=== PATIENT | female | born 1990 | race Caucasian/White ===

== ENCOUNTER 2019-09-19 09:30 | Emergency (ER) | payer OTHER ==
[~2019-09-19] VITALS: Ht 172.7 cm; Wt 113.4 kg
[~2019-09-19 09:30] MED LIST: ATIVAN0.5 MG PO; HUMALOG MI100 UNIT/2 SQ; INSULIN PEN; LANTUS100 UNIT/M SUBQ; LEVEMIR SUBQ; LISINOPRIL5 MG PO; MACROBID 100 M100 M1 PO; TRAZODONE HCL50 MG PO; TRINATE TABLET1 TAB PO; WELBUTRIN; ZOLOFT
[2019-09-19] MEDS ORDERED: LEVEMIR100 UNIT/1 SUBQ (10:03)
[2019-09-19] MEDS ORDERED: HUMALOG100 UNIT/1 SUBQ (10:04)
[2019-09-19 11:03] LABS: ABSOLUTE NEUTROPHILS 10.2 thou/uL (1.4-8.2); EOSINOPHILS 1.6 % (0.0-3.0); HEMATOCRIT 44.3 % (37.0-47.0); HEMOGLOBIN 14.5 gm/dL (12.0-15.0); LYMPHOCYTES 14.3 % (24.0-44.0); MCH 30.1 pg (26.0-34.0); MCHC 32.8 g/dL (28.0-37.0); MONOCYTES 5.4 % (1.0-8.0); PLATELET COUNT 375 thou/uL (150-400); POLYS 77.7 % (36.0-66.0); RBC 4.82 mil/uL (4.20-5.00); RDW 13.1 % (10.5-14.5); WBC 13.1 thou/uL (4.0-11.0)
[2019-09-19 11:12] LABS: CALCIUM 9.5 mg/dL (8.5-10.1); CREATININE 0.8 mg/dL (0.6-1.0); POTASSIUM 4.4 mmol/L (3.5-5.1)
[2019-09-19 13:53] VITALS: BP 103/62
== END 2019-09-19 14:20 | disposition home or self-care (01) ==
LOC: ER 09:30
PROVIDERS: Emergency Medicine
DX: O72.1 Other immediate postpartum hemorrhage (principal); E11.9 Type 2 diabetes mellitus without complications; J45.909 Unspecified asthma, uncomplicated; F17.210 Nicotine dependence, cigarettes, uncomplicated; Z98.890 Other specified postprocedural states; Z79.4 Long term (current) use of insulin; Z91.040 Latex allergy status; Z91.048 Other nonmedicinal substance allergy status

== ENCOUNTER 2020-01-03 14:16 | Emergency (ER) | payer OTHER ==
[~2020-01-03] VITALS: Ht 172.7 cm; Wt 117.9 kg
[~2020-01-03 14:16] MED LIST changes: +HUMALOG100 UNIT/1 SUBQ; +LEVEMIR100 UNIT/1 SUBQ
[2020-01-03 14:47] LABS: URINE BILIRUBIN NEGATIVE (Negative); URINE BLOOD NEGATIVE (Negative); URINE CLARITY CLEAR; URINE COLOR YELLOW; URINE GLUCOSE-RANDOM* 2+ (Negative); URINE KETONES NEGATIVE (Negative); URINE LEUKOCYTES-REFLEX NEGATIVE (Negative); URINE NITRITE-REFLEX NEGATIVE (Negative); URINE PROTEIN (DIPSTICK) NEGATIVE (Negative); URINE SPECIFIC GRAVITY 1.025 (1.005-1.035)
[2020-01-03] MEDS ORDERED: ABILIFY15 MG PO (14:57)
[2020-01-03] MEDS ORDERED: SERTRALINE HCL100 MG PO (14:58)
[2020-01-03] MEDS ORDERED: HYDROXYZINE PAM50 MG PO (14:58)
[2020-01-03] MEDS ORDERED: NOVOLOG FL100 UNIT/M SUBQ (14:59)
[2020-01-03] MEDS ORDERED: LANTUS SUBQ (15:00)
[2020-01-03 15:09] LABS: ABSOLUTE NEUTROPHILS 5.3 thou/uL (1.4-8.2); BASOPHILS 0.7 % (0.0-2.0); EOSINOPHILS 2.6 % (0.0-3.0); HEMATOCRIT 42.9 % (37.0-47.0); HEMOGLOBIN 14.1 gm/dL (12.0-15.0); LYMPHOCYTES 21.7 % (24.0-44.0); MCH 29.4 pg (26.0-34.0); MCHC 32.8 g/dL (28.0-37.0); MCV 89.5 fL (80.0-100.0); MONOCYTES 9.1 % (1.0-8.0); PLATELET COUNT 271 thou/uL (150-400); POLYS 65.9 % (36.0-66.0); RBC 4.79 mil/uL (4.20-5.00); RDW 14.2 % (10.5-14.5)
[2020-01-03 15:12] LABS: CALCIUM 8.6 mg/dL (8.5-10.1); CREATININE 0.8 mg/dL (0.6-1.0); POTASSIUM 4.3 mmol/L (3.5-5.1)
[2020-01-03] MEDS ORDERED: TESSALON PERLE100 MG PO (15:32)
[2020-01-03] MEDS ORDERED: IBUPROFEN 600600 M1 PO (15:32)
[2020-01-03 15:50] VITALS: BP 132/77
== END 2020-01-03 15:45 | disposition home or self-care (01) ==
LOC: ER 14:16
PROVIDERS: Nurse Practitioner Family
DX: B34.9 Viral infection, unspecified (principal); R11.2 Nausea with vomiting, unspecified; M79.10 Myalgia, unspecified site; J02.9 Acute pharyngitis, unspecified; J45.909 Unspecified asthma, uncomplicated; E11.9 Type 2 diabetes mellitus without complications; Z79.899 Other long term (current) drug therapy; Z79.4 Long term (current) use of insulin

== ENCOUNTER 2020-04-27 20:04 | Emergency (ER) | payer OTHER ==
[~2020-04-27] VITALS: Ht 172.7 cm; Wt 122.5 kg
[~2020-04-27 20:04] MED LIST changes: +ABILIFY15 MG PO; +HYDROXYZINE PAM50 MG PO; +IBUPROFEN 600600 M1 PO; +LANTUS SUBQ; +NOVOLOG FL100 UNIT/M SUBQ; +SERTRALINE HCL100 MG PO; +TESSALON PERLE100 MG PO
[2020-04-27] MEDS ORDERED: ERYTHROMYCIN E3.5 G2 OPHTHALMIC (20:39)
[2020-04-27 20:53] VITALS: BP 110/70
== END 2020-04-27 20:54 | disposition home or self-care (01) ==
LOC: ER 20:04
DX: H00.015 Hordeolum externum left lower eyelid (principal); J45.909 Unspecified asthma, uncomplicated; E11.9 Type 2 diabetes mellitus without complications; Z79.4 Long term (current) use of insulin; Z79.899 Other long term (current) drug therapy; Z91.040 Latex allergy status; Z91.048 Other nonmedicinal substance allergy status

== ENCOUNTER 2021-01-20 15:05 | Emergency (ER) | payer OTHER ==
[~2021-01-20] VITALS: Ht 172.7 cm; Wt 112.5 kg
--- NOTE | ~2021-01-20 | EKG ---
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
[~2021-01-20 15:05] MED LIST changes: +ERYTHROMYCIN E3.5 G2 OPHTHALMIC
[2021-01-20] MEDS ORDERED: METFORMIN HCL500 M3 PO (15:28)
[2021-01-20] MEDS ORDERED: FLEXERIL PO (15:28)
[2021-01-20] MEDS ORDERED: BUSPIRONE HCL10 MG PO (15:29)
[2021-01-20] MEDS ORDERED: GABAPENTIN 100100 MG PO (15:30)
[2021-01-20 15:46] LABS: HEMATOCRIT 33.7 % (37.0-47.0); HEMOGLOBIN 11.4 gm/dL (12.0-15.0); MCV 79.5 fL (80.0-100.0); PLATELET COUNT 282 thou/uL (150-400); RBC 4.24 mil/uL (4.20-5.00); RDW 14.9 % (10.5-14.5); WBC 8.2 thou/uL (4.0-11.0)
[2021-01-20 15:53] LABS: CALCIUM 8.3 mg/dL (8.5-10.1); CREATININE 0.7 mg/dL (0.6-1.0); POTASSIUM 3.3 mmol/L (3.5-5.1)
[2021-01-20 16:00] LABS: ALBUMIN 2.2 g/dL (3.4-5.0); TOTAL BILIRUBIN 0.4 mg/dL (0.2-1.0); TOTAL PROTEIN 7.3 g/dL (6.4-8.2)
[2021-01-20 16:29] LABS: AMP/METHAMP Negative (Negative); BARBITURATES Negative (Negative); BENZODIAZEPINES Negative (Negative); COCAINE Negative (Negative); METHADONE Negative (Negative); OPIATES Negative (Negative); PCP Negative (Negative)
[2021-01-20 16:42] LABS: URINE BILIRUBIN NEGATIVE (Negative); URINE BLOOD TRACE (Negative); URINE CLARITY CLEAR; URINE COLOR YELLOW; URINE GLUCOSE-RANDOM* 2+ (Negative); URINE KETONES 3+ (Negative); URINE LEUKOCYTES-REFLEX NEGATIVE (Negative); URINE NITRITE-REFLEX NEGATIVE (Negative); URINE PROTEIN (DIPSTICK) TRACE (Negative); URINE UROBILINOGEN 0.2 E.U./dl (0.2-1.0)
[2021-01-20 16:49] LABS: ABSOLUTE NEUTROPHILS 6.1 thou/uL (1.4-8.2); METAMYELOCYTES 4 %
[2021-01-20 16:50] LABS: TEARDROPS FEW; TOXIC GRANULATION SLIGHT
[2021-01-20 16:51] LABS: LARGE PLATELETS OCCASIONAL; POLYCHROMASIA 1+
[2021-01-20] MEDS ORDERED: ONDANSETRON HCL4 M2 PO (19:20)
[2021-01-20] MEDS ORDERED: IBUPROFEN 800800 M1 PO (19:20)
[2021-01-20] MEDS ORDERED: POTASSIUM20 PO (19:20)
[2021-01-20 20:12] VITALS: BP 120/71
--- NOTE | 2021-01-21 07:12 | EKG ---
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: SHMUEL : 1990 Requested By: Yanci Wheat Order Number: [id number] MD: Pranav Lemus Measurements Intervals [place] Rate: 88 P: 61 [place]: 127 QRS: 76 QRSD: 85 T: 13 QT: 365 QTc: 442 Interpretive Statements Sinus rhythm Minimal ST depression, inferior leads Compared to ECG 07/20/2014 03:53:54 ST (T wave) deviation now present Prolonged QT interval no longer present Electronically Signed On 01-21-2021 7:12:20 CDT by Pranav Lemus [email or web address] <ELECTRONICALLY SIGNED> By: Pranav Lemus MD, [facility] 01/21/21 0712 1454 1454 Pranav Lemus MD, FAC /EPI
--- NOTE | 2021-01-21 13:44 | EKG ---
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: SHARIF : 1990 Requested By: Yanci Wheat Order Number: [id number] MD: Price Pisano Measurements Intervals [place] Rate: 85 P: 42 [place]: 159 QRS: 58 QRSD: 95 T: 46 QT: 421 QTc: 501 Interpretive Statements Sinus rhythm Poor R wave progression Prolonged QT interval Compared to ECG 01/20/2021 14:54:30 Prolonged QT interval now present ST (T wave) deviation no longer present Electronically Signed On 01-21-2021 13:44:08 CDT by Price Pisano [email or web address] <ELECTRONICALLY SIGNED> By: Price Pisano MD, [facility] 01/21/21 1344 1854 1854 Price Pisano MD, [facility] /EPI
== END 2021-01-20 20:15 | disposition home or self-care (01) ==
LOC: ER 15:05
PROVIDERS: Physician Assistant
DX: B34.9 Viral infection, unspecified (principal); J45.909 Unspecified asthma, uncomplicated; E11.9 Type 2 diabetes mellitus without complications; Z79.2 Long term (current) use of antibiotics; Z79.4 Long term (current) use of insulin; Z79.899 Other long term (current) drug therapy; Z91.040 Latex allergy status; Z91.048 Other nonmedicinal substance allergy status; Z20.822 Contact with and (suspected) exposure to COVID-19

== ENCOUNTER 2021-05-27 17:17 | Emergency (ER) | payer OTHER ==
[~2021-05-27] VITALS: Ht 172.7 cm; Wt 122.5 kg
[~2021-05-27 17:17] MED LIST changes: +BUSPIRONE HCL10 MG PO; +FLEXERIL PO; +GABAPENTIN 100100 MG PO; +IBUPROFEN 800800 M1 PO; +METFORMIN HCL500 M3 PO; +ONDANSETRON HCL4 M2 PO; +POTASSIUM20 PO
[2021-05-27 18:53] LABS: URINE BILIRUBIN NEGATIVE (Negative); URINE BLOOD NEGATIVE (Negative); URINE CLARITY CLEAR; URINE COLOR YELLOW; URINE GLUCOSE-RANDOM* 3+ (Negative); URINE KETONES 1+ (Negative); URINE LEUKOCYTES-REFLEX NEGATIVE (Negative); URINE PROTEIN (DIPSTICK) NEGATIVE (Negative); URINE SPECIFIC GRAVITY 1.015 (1.005-1.035); URINE UROBILINOGEN 0.2 E.U./dl (0.2-1.0)
[2021-05-27 19:00] LABS: URINE NITRITE-REFLEX POSITIVE (Negative)
[2021-05-27 19:02] LABS: AMP/METHAMP Negative (Negative); BARBITURATES Negative (Negative); BENZODIAZEPINES Negative (Negative); COCAINE Negative (Negative); METHADONE Negative (Negative); OPIATES Negative (Negative); PCP Negative (Negative)
[2021-05-27 19:09] LABS: ABSOLUTE NEUTROPHILS 8.3 thou/uL (1.4-8.2); BASOPHILS 0.7 % (0.0-2.0); EOSINOPHILS 0.6 % (0.0-3.0); HEMATOCRIT 39.7 % (37.0-47.0); LYMPHOCYTES 16.8 % (24.0-44.0); MCH 26.3 pg (26.0-34.0); MCHC 32.6 g/dL (28.0-37.0); MCV 80.4 fL (80.0-100.0); MONOCYTES 8.8 % (1.0-8.0); PLATELET COUNT 287 thou/uL (150-400); POLYS 73.1 % (36.0-66.0); RBC 4.94 mil/uL (4.20-5.00); WBC 11.3 thou/uL (4.0-11.0)
[2021-05-27 19:16] LABS: ANION GAP 13 mmol/L (7-16); BUN 12 mg/dL (7-18); CALCIUM 8.3 mg/dL (8.5-10.1); CHLORIDE 99 mmol/L (98-107); CO2 21 mmol/L (21-32); CREATININE 0.9 mg/dL (0.6-1.0); GLUCOSE 472 mg/dL (74-106); SODIUM 133 mmol/L (136-145)
[2021-05-27 19:22] LABS: ALBUMIN 2.9 g/dL (3.4-5.0); SALICYLATE 3.5 mg/dL (2.8-20.0); SGOT 9 U/L (15-37); SGPT 15 U/L (14-59); TOTAL BILIRUBIN 0.4 mg/dL (0.2-1.0); TOTAL PROTEIN 7.4 g/dL (6.4-8.2)
[2021-05-27 19:37] LABS: BACTERIA-REFLEX 1-9 Few /HPF (None Seen); CASTS None Seen /LPF (None Seen); CRYSTALS None Seen /LPF (None Seen); MUCUS 0-3 Light strn/LPF (None Seen); SQUAMOUS 0-3 Few /LPF (0-3); URINE RBC 3-10 Few /HPF (NONE SEEN); URINE WBC-REFLEX 6-15 Few /HPF (0-5)
[2021-05-28] MEDS ORDERED: ATORVASTATIN CA20 MG PO (19:44)
[2021-05-28] MEDS ORDERED: TRESIBA FL200 UNIT/1 SUBQ (19:44)
[2021-05-28] MEDS ORDERED: NEURONTIN 300M300 M2 PO (19:45)
[2021-05-28] MEDS ORDERED: LATUDA80 MG PO (19:45)
[2021-05-29 08:39] LABS: ABSOLUTE NEUTROPHILS 6.5 thou/uL (1.4-8.2); BASOPHILS 1.1 % (0.0-2.0); EOSINOPHILS 1.3 % (0.0-3.0); HEMATOCRIT 39.5 % (37.0-47.0); HEMOGLOBIN 13.5 gm/dL (12.0-15.0); LYMPHOCYTES 18.6 % (24.0-44.0); MCV 79.3 fL (80.0-100.0); MONOCYTES 9.8 % (1.0-8.0); PLATELET COUNT 292 thou/uL (150-400); POLYS 69.2 % (36.0-66.0); RBC 4.99 mil/uL (4.20-5.00); RDW 15.9 % (10.5-14.5); WBC 9.4 thou/uL (4.0-11.0)
[2021-05-29 08:45] LABS: CALCIUM 8.6 mg/dL (8.5-10.1); CREATININE 0.7 mg/dL (0.6-1.0); POTASSIUM 4.3 mmol/L (3.5-5.1)
[2021-05-29 08:51] LABS: ALBUMIN 2.8 g/dL (3.4-5.0); TOTAL BILIRUBIN 0.4 mg/dL (0.2-1.0); TOTAL PROTEIN 7.5 g/dL (6.4-8.2)
[2021-05-29 09:55] LABS: URINE BILIRUBIN NEGATIVE (Negative); URINE BLOOD TRACE (Negative); URINE CLARITY CLOUDY; URINE COLOR YELLOW; URINE GLUCOSE-RANDOM* 3+ (Negative); URINE KETONES 1+ (Negative); URINE LEUKOCYTES-REFLEX TRACE (Negative); URINE NITRITE-REFLEX NEGATIVE (Negative); URINE PROTEIN (DIPSTICK) NEGATIVE (Negative); URINE SPECIFIC GRAVITY 1.025 (1.005-1.035); URINE UROBILINOGEN 0.2 E.U./dl (0.2-1.0)
[2021-05-30 18:39] VITALS: BP 118/62
== END 2021-05-27 18:35 | disposition home or self-care (01) ==
LOC: ER 17:17
PROVIDERS: Emergency Medicine; Physician Assistant
DX: R45.851 Suicidal ideations (principal); Z20.822 Contact with and (suspected) exposure to COVID-19; E11.65 Type 2 diabetes mellitus with hyperglycemia; J45.909 Unspecified asthma, uncomplicated; F32.9 Major depressive disorder, single episode, unspecified; F41.9 Anxiety disorder, unspecified; E78.5 Hyperlipidemia, unspecified; Z88.6 Allergy status to analgesic agent; Z91.040 Latex allergy status; Z79.2 Long term (current) use of antibiotics; Z79.4 Long term (current) use of insulin; Z79.899 Other long term (current) drug therapy

== ENCOUNTER 2021-05-27 17:18 | Inpatient (IN) | payer OTHER ==
[2021-05-27 18:53] LABS: URINE BILIRUBIN NEGATIVE (Negative); URINE BLOOD NEGATIVE (Negative); URINE CLARITY CLEAR; URINE COLOR YELLOW; URINE GLUCOSE-RANDOM* 3+ (Negative); URINE KETONES 1+ (Negative); URINE LEUKOCYTES-REFLEX NEGATIVE (Negative); URINE PROTEIN (DIPSTICK) NEGATIVE (Negative); URINE SPECIFIC GRAVITY 1.015 (1.005-1.035); URINE UROBILINOGEN 0.2 E.U./dl (0.2-1.0)
[2021-05-27 19:00] LABS: URINE NITRITE-REFLEX POSITIVE (Negative)
[2021-05-27 19:02] LABS: AMP/METHAMP Negative (Negative); BARBITURATES Negative (Negative); BENZODIAZEPINES Negative (Negative); COCAINE Negative (Negative); METHADONE Negative (Negative); OPIATES Negative (Negative); PCP Negative (Negative)
[2021-05-27 19:09] LABS: ABSOLUTE NEUTROPHILS 8.3 thou/uL (1.4-8.2); BASOPHILS 0.7 % (0.0-2.0); EOSINOPHILS 0.6 % (0.0-3.0); HEMATOCRIT 39.7 % (37.0-47.0); LYMPHOCYTES 16.8 % (24.0-44.0); MCH 26.3 pg (26.0-34.0); MCHC 32.6 g/dL (28.0-37.0); MCV 80.4 fL (80.0-100.0); MONOCYTES 8.8 % (1.0-8.0); PLATELET COUNT 287 thou/uL (150-400); POLYS 73.1 % (36.0-66.0); RBC 4.94 mil/uL (4.20-5.00); WBC 11.3 thou/uL (4.0-11.0)
[2021-05-27 19:16] LABS: ANION GAP 13 mmol/L (7-16); BUN 12 mg/dL (7-18); CALCIUM 8.3 mg/dL (8.5-10.1); CHLORIDE 99 mmol/L (98-107); CO2 21 mmol/L (21-32); CREATININE 0.9 mg/dL (0.6-1.0); GLUCOSE 472 mg/dL (74-106); SODIUM 133 mmol/L (136-145)
[2021-05-27 19:22] LABS: ALBUMIN 2.9 g/dL (3.4-5.0); SALICYLATE 3.5 mg/dL (2.8-20.0); SGOT 9 U/L (15-37); SGPT 15 U/L (14-59); TOTAL BILIRUBIN 0.4 mg/dL (0.2-1.0); TOTAL PROTEIN 7.4 g/dL (6.4-8.2)
[2021-05-27 19:37] LABS: BACTERIA-REFLEX 1-9 Few /HPF (None Seen); CASTS None Seen /LPF (None Seen); CRYSTALS None Seen /LPF (None Seen); MUCUS 0-3 Light strn/LPF (None Seen); SQUAMOUS 0-3 Few /LPF (0-3); URINE RBC 3-10 Few /HPF (NONE SEEN); URINE WBC-REFLEX 6-15 Few /HPF (0-5)
[2021-05-28] MEDS ORDERED: ATORVASTATIN CA20 MG PO (19:44)
[2021-05-28] MEDS ORDERED: TRESIBA FL200 UNIT/1 SUBQ (19:44)
[2021-05-28] MEDS ORDERED: NEURONTIN 300M300 M2 PO (19:45)
[2021-05-28] MEDS ORDERED: LATUDA80 MG PO (19:45)
== END 2021-05-30 13:29 | disposition home or self-care (01) | DRG 881 ==
LOC: SBH 17:18
PROVIDERS: Physician Assistant; ADMIT Psychiatry & Neurology Psychiatry; ATTEND Psychiatry & Neurology Psychiatry
DX: F32.9 Major depressive disorder, single episode, unspecified (principal); E11.65 Type 2 diabetes mellitus with hyperglycemia; R45.851 Suicidal ideations; J45.909 Unspecified asthma, uncomplicated; F41.9 Anxiety disorder, unspecified; E78.5 Hyperlipidemia, unspecified; Z20.822 Contact with and (suspected) exposure to COVID-19; Z88.8 Allergy status to other drugs, medicaments and biological substances; Z91.040 Latex allergy status; Z87.891 Personal history of nicotine dependence
CPT/HCPCS: 10880